=== PATIENT | female | born 1980 | race Caucasian/White ===

== ENCOUNTER 2016-08-13 13:25 | Emergency (ER) | payer OTHER ==
[~2016-08-13] VITALS: Ht 162.6 cm; Wt 80.3 kg
[~2016-08-13 13:25] MED LIST changes: -OXYCODONE-ACET1 EACH PO; -PERCOCET 5/31 TABLET PO; -ZOFRAN ODT4 MG PO; -ZOFRAN4 MG PO
[2016-08-13 14:43] LABS: HEMATOCRIT 40.9 % (36.0-46.0); MCH 30.7 PG (29.0-34.0); MCV 90.3 FL (83-99); MEAN PLAT.VOLUME 9.5 uM^3 (9.5-12.4); PLATELET COUNT 253 K/uL (156-360); RBC DIS.WIDTH-CV 12.4 % (11.8-14.6); RBC DIS.WIDTH-SD 41.2 % (39-53); RED BLOOD COUNT 4.53 M/uL (3.80-5.20); WHITE BLOOD COUNT 6.5 K/uL (4.1-10.2)
[2016-08-13 14:58] LABS: CHLORIDE 109 mEq/L (99-109); POTASSIUM 3.7 mEq/L (3.7-5.4); SODIUM 139 mEq/L (136-147)
[2016-08-13 14:59] LABS: AMYLASE 41 IU/L (1-118)
[2016-08-13 15:00] LABS: GLUCOSE 163 mg/dL (70-99)
[2016-08-13 15:01] LABS: ANION GAP 9 MEQ/L (2-14)
[2016-08-13 15:02] LABS: TOTAL BILIRUBIN 2.6 mg/dL (0.0-1.0)
[2016-08-13 15:04] LABS: ALKALINE PHOSPHATASE 184 IU/L (3-129); GFR ESTIMATE (CALCULATED) > 59 mL/min/
[2016-08-13 15:05] LABS: UREA NITROGEN (BUN) 11 mg/dL (9-23)
[2016-08-13 15:07] LABS: LIPASE 33 U/L (1.0-51.0)
[2016-08-13 15:15] LABS: QUANTITATIVE HCG < 4.0 MIU/ML
[2016-08-13] MEDS ORDERED: PERCOCET 5/31 TABLET PO (17:35)
[2016-08-13] MEDS ORDERED: ZOFRAN ODT4 MG PO (17:35)
[2016-08-13 18:31] VITALS: BP 107/75
[2016-08-16] MEDS ORDERED: ZOFRAN4 MG PO (10:49)
[2016-08-16] MEDS ORDERED: OXYCODONE-ACET1 EACH PO (10:49)
== END 2016-08-13 18:33 | disposition home or self-care (01) ==
LOC: EME 13:25
PROVIDERS: Nurse Practitioner Family
DX: K80.20 Calculus of gallbladder without cholecystitis without obstruction (principal); F17.200 Nicotine dependence, unspecified, uncomplicated
CPT/HCPCS: 74177; 80053; 82150; 83690; 84702; 85027; 99281; 99285; J2270; J2405; J7030

== ENCOUNTER → 2016-08-13 | Outpatient (CLI) | payer OTHER ==
[~2016-08-13] MED LIST: AUGMENTIN875 MG PO; OXYCODONE-ACET1 EACH PO; PERCOCET 5/31 TABLET PO; ZOFRAN ODT4 MG PO; ZOFRAN4 MG PO
== END | disposition home or self-care (01) ==
LOC: RAD 11:22
DX: K80.20 Calculus of gallbladder without cholecystitis without obstruction (principal)
CPT/HCPCS: 76705

== ENCOUNTER → 2016-08-18 | Outpatient (CLI) | payer OTHER ==
[~2016-08-18] VITALS: Ht 162.6 cm; Wt 78.9 kg
[~2016-08-18] MED LIST changes: +OXYCODONE-ACET1 EACH PO; +PERCOCET 5/31 TABLET PO; +ZOFRAN ODT4 MG PO; +ZOFRAN4 MG PO
== END | disposition home or self-care (01) ==
LOC: AMB 12:00
DX: K80.20 Calculus of gallbladder without cholecystitis without obstruction (principal); R10.11 Right upper quadrant pain; F17.210 Nicotine dependence, cigarettes, uncomplicated; Z83.79 Family history of other diseases of the digestive system; Z82.49 Family history of ischemic heart disease and other diseases of the circulatory system
CPT/HCPCS: 74328; 87081; C1757; C1769; J0330; J1335; J2405; J2765; J3010; J7050

== ENCOUNTER 2016-09-12 09:25 | Day surgery (SDC) | payer OTHER ==
[~2016-09-12] VITALS: Ht 162.6 cm; Wt 78.9 kg
[~2016-09-12 09:25] MED LIST changes: +ALEVE220 MG PO; +CYCLOBENZAPRINE5 MG PO; +ULTRAM50 MG PO
[2016-09-12 10:01] VITALS: BP 116/53
[2016-09-12] MEDS ORDERED: COLACE100 MG PO (12:57)
[2016-09-12] MEDS ORDERED: PERCOCET 5/31 TABLET PO (12:57)
[2016-09-12 14:32] VITALS: BP 101/61
[2016-09-12 15:30] VITALS: BP 101/64
[2016-09-12 16:19] VITALS: BP 110/68
== END 2016-09-12 16:23 | disposition home or self-care (01) ==
LOC: SDC 09:25
PROC: 0FT44ZZ Resection of Gallbladder, Percutaneous Endoscopic Approach (ICD-10-PCS; principal; 2016-09-12)
DX: K80.10 Calculus of gallbladder with chronic cholecystitis without obstruction (principal); G89.29 Other chronic pain; M54.5 Low back pain; M54.2 Cervicalgia; F17.210 Nicotine dependence, cigarettes, uncomplicated; M41.9 Scoliosis, unspecified; Z82.69 Family history of other diseases of the musculoskeletal system and connective tissue; Z83.3 Family history of diabetes mellitus; Z82.49 Family history of ischemic heart disease and other diseases of the circulatory system; Z84.1 Family history of disorders of kidney and ureter
CPT/HCPCS: 88304; J0131; J0330; J1100; J1170; J1885; J2250; J2405; J2710; J3010